=== PATIENT | male | born 1945 | race American Indian/Alaskan Native ===

== ENCOUNTER 2021-03-01 19:27 | Emergency (ER) | payer MEDICARE ==
--- NOTE | 2021-03-01 21:48 | Emergency Department Report ---
ED General Adult HPI - General Chief complaint: Abdominal Pain Stated complaint: STOMACH ISSUES Time Seen by Provider: 03/01/21 21:26 Source: patient Mode of arrival: Ambulatory Limitations: No Limitations - History of Present Illness Initial comments: 75-year-old male with a past medical history hypertension noncompliant with meds for approximately 3 to 4 weeks presents to the hospital complaining of inability to sleep throughout the night for the past 1 to 2 months. Patient states he goes to sleep for approximately 1 hour, wakes up to urinate, and is unable to go back to sleep. He urinates 4-5 times throughout the night. Denies dysuria or straining. He complains of some generalized abdominal discomfort/nausea but denies pain, vomiting, constipation, or diarrhea. Patient also denies infectious symptoms such as fever, cough, or shortness of breath. Is unvaccinated for COVID. Patient has been trying a variety of [id number], herbal, and alternative medicine treatments to treat his blood pressure and prostate. He is also attempted NyQuil to help him sleep without improvement. Patient ran out of his BP medications because he did not like his doctor and did not follow-up. He has an appointment scheduled with a new doctor this week and 4 days. Patient states he was previously prescribed lisinopril with a water pill possibl y with hydrochlorothiazide. Is been intermittently taking his daughters BP medications since running out of his own - Related Data Previous Rx's Medication Instructions Recorded Last Taken Type amLODIPine 5 mg PO DAILY #30 tablet 03/02/21 Unknown Rx hydrOXYzine PAMOATE [Vistaril] 50 mg PO QHS PRN #20 capsule 03/02/21 Unknown Rx Allergies Allergy/AdvReac Type Severity Reaction Status Date / Time No Known Allergies Allergy Unverified 03/01/21 21:48 ED Review of Systems ROS: Stated complaint: STOMACH ISSUES Other details as noted in HPI Comment: All other systems reviewed and negative ED Past Medical Hx - Past Medical History Previous Medical History?: Yes Hx Hypertension: Yes - Surgical History Past Surgical History?: Yes Additional Surgical History: left ear - Social History Smoking Status: Never Smoker Substance Use Type: Alcohol - Medications Home Medications: Home Medications Medication Instructions Recorded Confirmed Last Taken Type amLODIPine 5 mg PO DAILY #30 tablet 03/02/21 Unknown Rx hydrOXYzine PAMOATE [Vistaril] 50 mg PO QHS PRN #20 capsule 03/02/21 Unknown Rx ED Physical Exam - General Limitations: No Limitations - Other Other exam information: General: No acute distress Head: Atraumatic Eyes: normal appearance ENT: Moist mucous membranes Neck: Normal appearance, no midline tenderness Chest: Clear to auscultation bilaterally CV: Regular rate and rhythm Abdomen: Soft, normal bowel sounds, nontender, nondistended, no rebound or guarding Back: Normal inspection Extremity: Normal inspection, full range of motion Neuro: Alert O x 3, no facial asymmetry, speech clear, no gross motor sensory deficit Psych: Appropriate behavior Skin: No rash ED Course Vital Signs 03/01/21 03/02/21 21:19 00:07 Temperature 98.3 F Pulse Rate 80 63 Respiratory 18 Rate Blood Pressure 194/82 170/80 O2 Sat by Pulse 100 Oximetry ED Medical Decision Making - Lab Data Result diagrams: 03/01/21 22:03 03/01/21 22:03 Lab Results 03/01/21 03/01/21 03/01/21 Range/Units 22:03 22:03 22:03 WBC 4.5 (4.5-11.0) K/mm3 RBC 4.68 (3.65-5.03) M/mm3 Hgb 12.2 (11.8-15.2) gm/dl Hct 40.5 (35.5-45.6) % MCV 87 (84-94) fl MCH 26 L (28-32) pg MCHC 30 L (32-34) % RDW 12.8 L (13.2-15.2) % Plt Count 198 (140-440) K/mm3 Sodium 135 L (137-145) mmol/L Potassium 4.0 (3.6-5.0) mmol/L Chloride 100.0 (98-107) mmol/L Carbon Dioxide 26 (22-30) mmol/L Anion Gap 13 mmol/L BUN 22 H (9-20) mg/dL Creatinine 1.4 H (0.8-1.3) mg/dL Estimated GFR 60 ml/min BUN/Creatinine Ratio 16 % Glucose 130 H (75-100) mg/dL Calcium 9.6 (8.4-10.2) mg/dL Magnesium 2.30 (1.7-2.3) mg/dL Total Bilirubin 0.30 (0.1-1.2) mg/dL AST 22 (5-40) units/L ALT 32 (7-56) units/L Alkaline Phosphatase 68 (35-129) units/L Total Protein 7.6 (6.3-8.2) g/dL Albumin 4.3 (3.9-5) g/dL Albumin/Globulin Ratio 1.3 % Urine Color (Yellow) Urine Turbidity (Clear) Urine pH (5.0-7.0) Ur Specific Jones (1.003-1.030) Urine Protein (Negative) mg/dL Urine Glucose (UA) (Negative) mg/dL Urine Ketones (Negative) mg/dL Urine Blood (Negative) Urine Nitrite (Negative) Urine Bilirubin (Negative) Urine Urobilinogen (<2.0) mg/dL Ur Leukocyte Esterase (Negative) Urine WBC (Auto) (0.0-6.0) /HPF Urine RBC (Auto) (0.0-6.0) /HPF Urine Mucus /HPF 03/01/21 Range/Units 23:16 WBC (4.5-11.0) K/mm3 RBC (3.65-5.03) M/mm3 Hgb (11.8-15.2) gm/dl Hct (35.5-45.6) % MCV (84-94) fl MCH (28-32) pg MCHC (32-34) % RDW (13.2-15.2) % Plt Count (140-440) K/mm3 Sodium (137-145) mmol/L Potassium (3.6-5.0) mmol/L Chloride (98-107) mmol/L Carbon Dioxide (22-30) mmol/L Anion Gap mmol/L BUN (9-20) mg/dL Creatinine (0.8-1.3) mg/dL Estimated GFR ml/min BUN/Creatinine Ratio % Glucose (75-100) mg/dL Calcium (8.4-10.2) mg/dL Magnesium (1.7-2.3) mg/dL Total Bilirubin (0.1-1.2) mg/dL AST (5-40) units/L ALT (7-56) units/L Alkaline Phosphatase (35-129) units/L Total Protein (6.3-8.2) g/dL Albumin (3.9-5) g/dL Albumin/Globulin Ratio % Urine Color Straw (Yellow) Urine Turbidity Clear (Clear) Urine pH 7.0 (5.0-7.0) Ur Specific Jones 1.013 (1.003-1.030) Urine Protein <15 mg/dl (Negative) mg/dL Urine Glucose (UA) Neg (Negative) mg/dL Urine Ketones Neg (Negative) mg/dL Urine Blood Neg (Negative) Urine Nitrite Neg (Negative) Urine Bilirubin Neg (Negative) Urine Urobilinogen < 2.0 (<2.0) mg/dL Ur Leukocyte Esterase Neg (Negative) Urine WBC (Auto) < 1.0 (0.0-6.0) /HPF Urine RBC (Auto) 1.0 (0.0-6.0) /HPF Urine Mucus Few /HPF - Medical Decision Making Patient's main complaint today seems to be inability to sleep consecutively for 1 to 2 months and also high blood pressure presumed to be due to to inability to sleep. Patient also has been noncompliant with his blood pressure medications and taking herbal supplements and taking his daughters medications intermittently. Patient does not have any signs and symptoms of hypertensive emergency. Norvasc will be started for hypertension. Vistaril provided for sleep. PMD follow will be encouraged as scheduled. 1 dose of Norvasc provided prior to patient Critical Care Time: No Critical care attestation.: If time is entered above; I have spent that time in minutes in the direct care of this critically ill patient, excluding procedure time. ED Disposition Clinical Impression: Chronic hypertension, Insomnia, Noncompliance with medication regimen Disposition: 01 HOME / SELF CARE / HOMELESS Is pt being admited?: No Does the pt Need Aspirin: No Condition: Stable Instructions: Hypertension, Adult, [id number], Insomnia, Hypertension (ED) Additional Instructions: Take the medication as prescribed. Follow-up with your doctor as scheduled. return if symptoms worsen as indicated by your discharge instructions. Prescriptions: amLODIPine 5 mg PO DAILY #30 tablet hydrOXYzine PAMOATE [Vistaril] 50 mg PO QHS PRN #20 capsule PRN Reason: Insomnia Referrals: your, Primary doctor [Other] - 03/05/21 (follow up with your doctor as scheduled) Time of Disposition: 00:22
[2021-03-01 22:27] LABS: Mean Corpuscular HGB Conc 30 % (32-34); Mean Corpuscular Volume 87 fl (84-94); Platelet Count 198 K/mm3 (140-440); Red Blood Count 4.68 M/mm3 (3.65-5.03); Red Cell Distribution Width 12.8 % (13.2-15.2)
[2021-03-01 22:31] LABS: Hematocrit 40.5 % (35.5-45.6); Hemoglobin 12.2 gm/dl (11.8-15.2)
[2021-03-01 22:55] LABS: Albumin 4.3 g/dL (3.9-5); Calcium 9.6 mg/dL (8.4-10.2)
[2021-03-01] MEDS ORDERED: amLODIPine 5 MG TAB PO ONE (23:57)
[2021-03-02 00:06] LABS: Bilirubin,Urine NEG (Negative); Blood,Urine NEG (Negative); Color,Urine Straw (Yellow); Mucus,Urine FEW /HPF; Protein,Urine <15 mg/dL mg/dL (Negative); Urobilinogen,Urine < 2.0 mg/dL (<2.0); WBC,Urine < 1.0 /HPF (0.0-6.0)
[2021-03-02 01:29] VITALS: BP 183/77
[2021-03-02 04:29] LABS: Anisocytosis 1+; Basophils % (Manual) 0 % (0.0-1.8); Eosinophils % (Manual) 0 % (0.0-4.3); Platelet Estimate Consistent w Auto; Total Cells Counted 100
== END 2021-03-02 01:09 | disposition home or self-care (01) ==
LOC: ED 19:27
DX: I10 Essential (primary) hypertension (principal); G47.00 Insomnia, unspecified; Z91.14 Patient's other noncompliance with medication regimen; Z98.890 Other specified postprocedural states
CPT/HCPCS: 36415; 80053; 81001; 83735; 85007; 85025; 99283

== ENCOUNTER 2021-03-14 00:54 | Emergency (ER) | payer MEDICARE ==
[2021-03-14 03:20] VITALS: BP 171/88
[2021-03-14] MEDS ORDERED: traZODone 50 MG TAB PO ONE (03:55)
--- NOTE | 2021-03-14 03:57 | Emergency Department Report ---
ED General Adult HPI - General Chief complaint: High BP Stated complaint: HIGH BLOOD PRESSURE Source: EMS Mode of arrival: Stretcher Limitations: No Limitations - History of Present Illness Initial comments: Patient is a 75 yo AA with past medical history of hypertension and insomnia who presents to the ED with c/o acute onset persistent insomnia and elevated blood pressure x 1 week, worse in the last 2 days. Patient stated that he takes Amlodipine 5mg daily and vistaril 25mg at night but stated that the patient stated that the insomnia makes him have visual hallucinations. Patient denies dyspnea, nausea, vomiting, dizziness, chest pain, headache, neck pain or cough or vision changes and syncope. MD Complaint: Insomnia; Elevated BP -: Sudden, week(s) (1) Location: head Radiation: non-radiation Severity scale (0 -10): 3 Quality: dull Consistency: intermittent Improves with: none Worsens with: none Associated Symptoms: denies other symptoms. denies: confusion, chest pain, cough, diaphoresis, fever/chills, headaches, loss of appetite, malaise, nausea/vomiting, rash, shortness of breath, syncope, weakness Treatments Prior to Arrival: none - Related Data Previous Rx's Medication Instructions Recorded Last Taken Type amLODIPine 5 mg PO DAILY #30 tablet 03/02/21 Unknown Rx hydrOXYzine PAMOATE [Vistaril] 50 mg PO QHS PRN #20 capsule 03/02/21 Unknown Rx amLODIPine 10 mg PO DAILY #39 tab 03/14/21 Unknown Rx traZODone [Desyrel] 50 mg PO QHS #30 tab 03/14/21 Unknown Rx Allergies Allergy/AdvReac Type Severity Reaction Status Date / Time No Known Allergies Allergy Unverified 03/01/21 21:48 ED Review of Systems ROS: Stated complaint: HIGH BLOOD PRESSURE Other details as noted in HPI Constitutional: malaise, other (Insomnia). denies: chills, fever Eyes: denies: eye pain, eye discharge, vision change ENT: denies: ear pain, throat pain Respiratory: denies: cough, shortness of breath, wheezing Cardiovascular: denies: chest pain, palpitations Endocrine: no symptoms reported Gastrointestinal: denies: abdominal pain, nausea, vomiting, diarrhea Genitourinary: denies: urgency, dysuria Musculoskeletal: denies: back pain, joint swelling, arthralgia Skin: denies: rash, lesions Neurological: denies: headache, weakness, paresthesias Psychiatric: denies: anxiety, depression Hematological/Lymphatic: denies: easy bleeding, easy bruising ED Past Medical Hx - Past Medical History Hx Hypertension: Yes - Surgical History Past Surgical History?: Yes Additional Surgical History: left ear - Social History Smoking Status: Never Smoker Substance Use Type: Alcohol - Medications Home Medications: Home Medications Medication Instructions Recorded Confirmed Last Taken Type amLODIPine 5 mg PO DAILY #30 tablet 03/02/21 Unknown Rx hydrOXYzine PAMOATE [Vistaril] 50 mg PO QHS PRN #20 capsule 03/02/21 Unknown Rx amLODIPine 10 mg PO DAILY #39 tab 03/14/21 Unknown Rx traZODone [Desyrel] 50 mg PO QHS #30 tab 03/14/21 Unknown Rx ED Physical Exam - General Limitations: No Limitations General appearance: alert, in no apparent distress - Head Head exam: Present: atraumatic, normocephalic, normal inspection - Eye Eye exam: Present: normal appearance, PERRL, EOMI Pupils: Present: normal accommodation - ENT ENT exam: Present: normal exam, normal orophraynx, mucous membranes moist, TM's normal bilaterally, normal external ear exam - Neck Neck exam: Present: normal inspection, full ROM - Respiratory Respiratory exam: Present: normal lung sounds bilaterally. Absent: respiratory distress, wheezes, rales, rhonchi, chest wall tenderness, accessory muscle use - Cardiovascular Cardiovascular Exam: Present: regular rate, normal rhythm, normal heart sounds. Absent: systolic murmur, diastolic murmur, rubs, gallop - GI/Abdominal GI/Abdominal exam: Present: soft, normal bowel sounds. Absent: tenderness, guarding, rebound, hyperactive bowel sounds, hypoactive bowel sounds - Extremities Exam Extremities exam: Present: normal inspection, full ROM, normal capillary refill - Back Exam Back exam: Present: normal inspection, full ROM. Absent: tenderness, CVA tenderness (R), CVA tenderness (L), muscle spasm, paraspinal tenderness, vertebral tenderness - Neurological Exam Neurological exam: Present: alert, oriented X3, CN II-XII intact, normal gait, reflexes normal - Psychiatric Psychiatric exam: Present: normal affect, normal mood - Skin Skin exam: Present: warm, dry, intact, normal color. Absent: rash ED Course Vital Signs 03/14/21 03/14/21 01:02 03:15 Temperature 98.4 F Pulse Rate 90 89 Respiratory 16 17 Rate Blood Pressure 181/84 171/88 [Left] O2 Sat by Pulse 98 99 Oximetry ED Medical Decision Making - Medical Decision Making This is a 75 yo AA with past medical history of hypertension and insomnia who presents to the ED with c/o acute onset persistent insomnia and elevated blood pressure x 1 week, worse in the last 2 days. Patient stated that he takes Amlodipine 5mg daily and vistaril 25mg at night but stated that the patient stated that the insomnia makes him have visual hallucinations. In the ED patient is alert and oriented x3 and is in no acute distress but elevated blood pressure. Patient's blood pressure was rechecked and it improved. The patient was treated for insomnia with Trazodone 50 mg orally at once. The was therefore discharged home on medications and advised to follow up with his primary care physician in 7-10 days or return to the ED immediately if symptoms get worse. - Differential Diagnosis Insomnia; Uncontrolled Hypertension; Anxiety Critical care attestation.: If time is entered above; I have spent that time in minutes in the direct care of this critically ill patient, excluding procedure time. ED Disposition Clinical Impression: Uncontrolled stage 2 hypertension Insomnia disorder Qualifiers: Insomnia type: unspecified Qualified Code(s): G47.00 - Insomnia, unspecified Disposition: 01 HOME / SELF CARE / HOMELESS Is pt being admited?: No Does the pt Need Aspirin: No Condition: Stable Instructions: Hypertension (ED), Hypertension, Adult, [id number], Insomnia Additional Instructions: Take medication with food, drink plenty of fluids and follow-up with your primary care physician in 7 to 10 days for reevaluation. Return to the ED immediately if symptoms get worse. Prescriptions: traZODone [Desyrel] 50 mg PO QHS #30 tab amLODIPine 10 mg PO DAILY #39 tab Referrals: [facility] [Provider Group] - 3-5 Days Time of Disposition: 03:53 Print Language: DANISH
== END 2021-03-14 04:00 | disposition home or self-care (01) ==
LOC: ED 00:54
DX: I10 Essential (primary) hypertension (principal); G47.00 Insomnia, unspecified; Z72.89 Other problems related to lifestyle; Z79.899 Other long term (current) drug therapy
CPT/HCPCS: 99283